=== PATIENT | female | born 1955 | race Caucasian/White ===

== ENCOUNTER → 2019-07-16 | Day surgery (SDC) | payer BC ==
[~2019-07-16] MED LIST: ALLO100T PO; CELE200C PO; IV RINGERS,LACTATED 1000ML 1,000 ML IV ONE; OMEP40CA45 PO; PROPOFOL 20 ML IV ONE; TAMS0.4C97 PO
[2019-07-16 11:52] VITALS: BP 118/57
--- NOTE | 2019-07-16 15:30 | HP ---
ADMIT DATE: UPDATE HISTORY AND PHYSICAL REFERRING PHYSICIAN: Mendy Garcia. REASON: History of colonic polyps. HISTORY: A 64-year-old female with past medical history is significant for colonic polyps, GERD, sleep apnea as well as gout and osteoarthrosis, who is seen in further evaluation for interval colon exam. Bowel habits are regular without diarrhea or constipation. There has been no melena and/or hematochezia. Weight and appetite are stable and she is otherwise without additional complaints. PAST MEDICAL HISTORY: Sleep apnea, colonic polyps, GERD, arthritis. ALLERGIES: SULFA AND ____. MEDICATIONS: Include allopurinol, Celebrex, omeprazole, tamsulosin. SOCIAL HISTORY: She is nonsmoker, nondrinker. PAST SURGICAL HISTORY: Status post eye surgery, cholecystectomy, joint replacement. FAMILY HISTORY: Significant for hypertension and myocardial infarction with her mother, ovarian cancer with grandmother and colonic polyps with her mother. REVIEW OF SYSTEMS: Per records. PHYSICAL EXAMINATION: GENERAL: Reveals a well-nourished, well-developed female. VITAL SIGNS: Temperature is 98.7, pulse 107, respirations 20. LUNGS: Clear. CARDIOVASCULAR: Reveals an S1, S2 without S3, S4 or appreciable murmur. ABDOMEN: Reveals a soft abdomen, normal bowel sounds, without appreciable hepatosplenomegaly. EXTREMITIES: Reveals no cyanosis, clubbing or edema. IMPRESSION: History of colonic polyps. Surveillance exam is recommended at this time. Risks and benefits of procedure including risk of hemorrhage and perforation during the operation have been discussed. The patient is willing to proceed. DENISSE BOYD MD DR: DMITRY/grant JOB#: [id number] / [id number]
--- NOTE | 2019-07-19 15:07 | PATHOLOGY ---
[facility] Accession Number: [id number] . 01 Material submitted: . cecum - CECAL POLYP . 01 Clinical history: . CRCS . 02 Diagnosis: Colon biopsies, cecal polyp: - Inflamed hyperplastic polyp showing focal surface erosion and acute and chronic inflammation. . (JP:mm; 07/19/2019) [facility] 07/19/2019 1026 Local . 02 Comment: There are no adenomatous changes or evidence of malignancy. . (JPM:mm; 07/19/2019) . 02 Electronically signed: . Giorgio Flores MD, Pathologist NPI- [id number] . 01 Gross description: . The specimen is received in formalin, labeled "Isadora Long, cecal polyp". Received are two segments of pale pearce soft tissue ranging in size from 0.5 to 0.7 cm in maximum dimensions. The specimen is submitted entirely in cassette A1. ([facility]; 07/16/2019) QA/[facility] 07/16/2019 1910 Local . 02 Pathologist provided ICD-10: K51.40 . 02 CPT . 817881 Specimen Comment: A courtesy copy of this report has been sent to [phone], [phone] Specimen Comment: [id number] Specimen Comment: Report sent to / DR ESPINOZA Performed at: 01 [facility] [address], [place] [id number] MD Oscar Barkley MD Phone: [phone] Performed at: 02 [facility] [address] [place], [place] [id number] MD Giorgio Flores MD Phone: [phone]
== END ==
LOC: ENDOS 08:55
PROVIDERS: ATTEND Internal Medicine Gastroenterology
DX: Z12.11 Encounter for screening for malignant neoplasm of colon (principal); K63.5 Polyp of colon; K57.30 Diverticulosis of large intestine without perforation or abscess without bleeding; K64.0 First degree hemorrhoids; G47.30 Sleep apnea, unspecified; K21.9 Gastro-esophageal reflux disease without esophagitis; M10.9 Gout, unspecified; E66.01 Morbid (severe) obesity due to excess calories; Z68.42 Body mass index [BMI] 45.0-49.9, adult; Z96.653 Presence of artificial knee joint, bilateral; Z90.49 Acquired absence of other specified parts of digestive tract; Z98.890 Other specified postprocedural states; G62.9 Polyneuropathy, unspecified
CPT/HCPCS: 45380; J2704